=== PATIENT | male | born 1960 | race African-American/Black ===

== ENCOUNTER 2016-07-04 13:27 | Observation (INO) | payer MEDICARE, OTHER ==
[2016-07-04 14:15] LABS: HEMATOCRIT 43.6 % (37.9-51.0); HEMOGLOBIN 14.3 g/dL (13.5-17.0); HGB HCT DIFFERENCE -0.7; MEAN CORPUSCULAR HEMOGLOBIN 27.4 pg (27.0-33.4); MEAN CORPUSCULAR HGB CONC 32.7 g/dL (32.0-36.0); MEAN CORPUSCULAR VOLUME 84 fl (80-97); RED BLOOD COUNT 5.21 10^6/uL (4.35-5.55); RED CELL DISTRIBUTION WIDTH 14.1 % (11.5-14.0); WHITE BLOOD COUNT 6.4 10^3/uL (4.0-10.5)
[2016-07-04 14:38] LABS: ANION GAP 12 (5-19); BLOOD UREA NITROGEN 17 mg/dL (7-20); CALCIUM 10.5 mg/dL (8.4-10.2); CARBON DIOXIDE 26 mmol/L (22-30); CHLORIDE 107 mmol/L (98-107); CREATININE RESULT 0.83 mg/dL (0.52-1.25); GLUCOSE 85 mg/dL (75-110); POTASSIUM 4.1 mmol/L (3.6-5.0); SODIUM 144.8 mmol/L (137-145)
[2016-07-04] MEDS: HYDROMORPHONE HCL INJ/PF 2 MG/ML AMPULE IV PRN ×2 (15:28→19:38)
[2016-07-04] MEDS ORDERED: ENOXAPARIN SODIUM INJ 40 MG/0.4 ML DISP.SYRIN SUBCUT ONE (15:30)
[2016-07-04] MEDS ORDERED: CLONIDINE HCL 0.1 MG TABLET PO ONE (17:15)
[2016-07-05] MEDS ORDERED: ENOXAPARIN SODIUM INJ 30 MG/0.3 ML DISP.SYRIN SUBCUT SCH (08:00)
[2016-07-05] MEDS: ENOXAPARIN SODIUM INJ 40 MG/0.4 ML DISP.SYRIN SUBCUT SCH (08:03)
[2016-07-05] MEDS: HYDROMORPHONE HCL INJ/PF 2 MG/ML AMPULE IV PRN ×2 (08:04→13:48)
[2016-07-05] MEDS ORDERED: HYDROCHLOROTHIAZIDE 12.5 MG CAPSULE PO ONE (11:00)
[2016-07-05] MEDS ORDERED: LANSOPRAZOLE 30 MG TAB.RAP.DR PO ONE (11:00)
[2016-07-05] MEDS ORDERED: METOPROLOL TARTRATE 100 MG TABLET PO ONE (11:00)
[2016-07-05] MEDS ORDERED: ASPIRIN 81 MG TABLET, ENT COATED PO ONE (11:00)
[2016-07-05] MEDS ORDERED: LISINOPRIL 10 MG TABLET PO ONE (11:00)
[2016-07-05] MEDS: GABAPENTIN 300 MG CAPSULE PO SCH ×2 (13:45→21:10)
--- NOTE | 2016-07-05 15:34 | PDOC H&P ---
History of Present Illness Admission Date/PCP: 07/04/16 13:27 BRAEDEN HEATH MD History of Present Illness: RAJAN MYERS is a 56 year old male previous history of severe degenerative arthritis of the hip joints status post right hip replacement he came to the office because of severe pain affecting the left hip and the low back, he follows with pain management and he takes opioid, Percocet for the control of chronic pain. He denies any history of trauma or injury, he has trouble ambulating, he came to the office limping on his left hip joints. The blood pressure recorded was elevated it is hypertensive urgency. He is requesting to be admitted to the hospital to control his pain because the Percocet is not effective in the control of his pain. He is scheduled for left hip replacement therapy next month he has already had his right hip replaced. Past Medical History Cardiac Medical History: Reports: Hypertension Musculoskeltal Medical History: Reports: Arthritis Social History Smoking Status: Current Some Day Smoker Drugs: None Family History Family History: Reviewed & Not Pertinent Parental Family History Reviewed: Yes Children Family History Reviewed: Yes Sibling(s) Family History Reviewed.: Yes Medication/Allergy Home Medications: Aspirin [Aspirin EC] 81 mg PO DAILY 07/04/16 Gabapentin [Neurontin 300 mg Capsule] 300 mg PO Q8 07/04/16 Lisinopril/Hydrochlorothiazide [Zestoretic 10-12.5 mg Tablet] 1 tab PO DAILY Metoprolol Tartrate [Lopressor 100 mg Tablet] 100 mg PO Q12 07/04/16 Omeprazole 40 mg PO DAILY 07/04/16 Oxycodone HCl/Acetaminophen [Percocet 10-325 mg Tablet] 1 tab PO Q6HP PRN Oxymorphone HCl [Opana ER] 15 mg PO Q12 07/04/16 Simvastatin [Zocor 40 mg Tablet] 40 mg PO QHS 07/04/16 Zolpidem Tartrate [Ambien] 10 mg PO QHS 07/04/16 Allergies/Adverse Reactions: No Known Allergies Allergy (Verified 10/22/11 04:49) Review of Systems Constitutional: ABSENT: chills, fever(s), headache(s), weight gain, weight loss Eyes: ABSENT: visual disturbances Ears: ABSENT: hearing changes Cardiovascular: ABSENT: chest pain, dyspnea on exertion, edema, orthropnea, palpitations Respiratory: ABSENT: cough, hemoptysis Gastrointestinal: ABSENT: abdominal pain, constipation, diarrhea, hematemesis, hematochezia, nausea, vomiting Genitourinary: ABSENT: dysuria, hematuria Musculoskeletal: PRESENT: back pain, other - Severe pain affecting the joints Integumentary: ABSENT: rash, wounds Neurological: ABSENT: abnormal gait, abnormal speech, confusion, dizziness, focal weakness, syncope Psychiatric: ABSENT: anxiety, depression, homidical ideation, suicidal ideation Endocrine: ABSENT: cold intolerance, heat intolerance, menstrual abnormalities, polydipsia, polyuria Hematologic/Lymphatic: ABSENT: easy bleeding, easy bruising, lymphadenopathy Physical Exam Vital Signs: Temp Pulse Resp BP Pulse Ox 98.0 F 74 17 152/89 H 99 07/04/16 23:40 07/04/16 23:40 07/04/16 23:40 07/04/16 23:40 07/04/16 23:40 Intake & Output 07/04/16 07/05/16 07/06/16 06:59 06:59 06:59 Intake Total 1040 320 Balance 1040 320 Weight 99.2 kg General appearance: PRESENT: no acute distress, well-developed, well-nourished Head exam: PRESENT: atraumatic, normocephalic Eye exam: PRESENT: conjunctiva pink, EOMI, PERRLA Ear exam: PRESENT: normal external ear exam Mouth exam: PRESENT: moist, tongue midline Neck exam: PRESENT: full ROM Respiratory exam: PRESENT: clear to auscultation jimena Cardiovascular exam: PRESENT: RRR, +S1, +S2 Pulses: PRESENT: normal dorsalis pedis pul, +2 pedal pulses bilateral Vascular exam: PRESENT: normal capillary refill GI/Abdominal exam: PRESENT: normal bowel sounds, soft Rectal exam: PRESENT: deferred Neurological exam: PRESENT: alert, awake, oriented to person, oriented to place , oriented to time, oriented to situation, CN II-XII grossly intact Psychiatric exam: PRESENT: appropriate affect, normal mood Skin exam: PRESENT: dry, intact, warm Results Laboratory Results: 07/04/16 14:02 07/04/16 14:02 Impressions: Hip X-Ray 07/04/16 00:00 IMPRESSION: Degenerative changes in the left hip as noted above. Patient is status post right total hip replacement Lumbar Spine X-Ray 07/04/16 00:00 IMPRESSION: No significant vertebral compression or disc space reduction is seen. Minimal anterior osteophytic lipping is identified. Other findings as noted above Assessment & Plan - Diagnosis (1) Intractable pain Is this a current diagnosis for this admission?: YesPlan: Patient is admitted for observation to control the severe intractable pain that he is having (2) Osteoarthritis of left hip Qualifiers: Osteoarthritis type: primary Qualified Code(s): M16.12 - Unilateral primary osteoarthritis, left hip Is this a current diagnosis for this admission?: YesPlan: He has severe osteoarthritis of the left hip, is scheduled for hip replacement therapy
[2016-07-05] MEDS: METOPROLOL TARTRATE 100 MG TABLET PO SCH (21:10)
[2016-07-05] MEDS: ZOLPIDEM TARTRATE 5 MG TABLET PO SCH (21:10)
[2016-07-05] MEDS: SIMVASTATIN 40 MG TABLET PO SCH (21:11)
[2016-07-05] MEDS ORDERED: (PENDING PHARMACY ID) (Zolpidem Tartrate [Ambien] 10 MG) PO SCH (22:00)
[2016-07-06] MEDS: GABAPENTIN 300 MG CAPSULE PO SCH ×3 (05:20→21:55)
[2016-07-06] MEDS: HYDROMORPHONE HCL INJ/PF 2 MG/ML AMPULE IV PRN ×4 (05:20→20:34)
[2016-07-06] MEDS: ENOXAPARIN SODIUM INJ 40 MG/0.4 ML DISP.SYRIN SUBCUT SCH (08:10)
[2016-07-06] MEDS ORDERED: ASPIRIN 81 MG TABLET, ENT COATED PO SCH (10:00)
[2016-07-06] MEDS ORDERED: LISINOPRIL 10 MG TABLET PO SCH (10:00)
[2016-07-06] MEDS ORDERED: HYDROCHLOROTHIAZIDE 12.5 MG CAPSULE PO SCH (10:00)
[2016-07-06] MEDS ORDERED: (PENDING PHARMACY ID) (Lisinopril/Hydrochlorothiazide [Zestoretic 10-12.5 Mg Tablet] 1 TAB PO SCH (10:00)
[2016-07-06] MEDS ORDERED: LANSOPRAZOLE 30 MG TAB.RAP.DR PO SCH (10:00)
[2016-07-06] MEDS: METOPROLOL TARTRATE 100 MG TABLET PO SCH ×2 (10:34→21:55)
--- NOTE | 2016-07-06 17:39 | PDOC DISCHARGE SUMMARY ---
General - Admit/Disc Date/PCP Admission Date/Primary Care Provider: 07/04/16 13:27 BRAEDEN HEATH MD Discharge Date: 07/06/16 - Discharge Diagnosis (1) Intractable pain Is this a current diagnosis for this admission?: Yes (2) Osteoarthritis of left hip Is this a current diagnosis for this admission?: Yes - Additional Information Discharge Diet: As Tolerated, Regular Discharge Activity: Activity As Tolerated Home Medications: Aspirin [Aspirin EC] 81 mg PO DAILY 07/04/16 Gabapentin [Neurontin 300 mg Capsule] 300 mg PO Q8 07/04/16 Lisinopril/Hydrochlorothiazide [Zestoretic 10-12.5 mg Tablet] 1 tab PO DAILY Metoprolol Tartrate [Lopressor 100 mg Tablet] 100 mg PO Q12 07/04/16 Omeprazole 40 mg PO DAILY 07/04/16 Oxycodone HCl/Acetaminophen [Percocet 10-325 mg Tablet] 1 tab PO Q6HP PRN Oxymorphone HCl [Opana ER] 15 mg PO Q12 07/04/16 Simvastatin [Zocor 40 mg Tablet] 40 mg PO QHS 07/04/16 Zolpidem Tartrate [Ambien] 10 mg PO QHS 07/04/16 History of Present Illness History of Present Illness: RAJAN MYERS is a 56 year old male previous history of severe degenerative arthritis of the hip joints status post right hip replacement he came to the office because of severe pain affecting the left hip and the low back, he follows with pain management and he takes opioid, Percocet for the control of chronic pain. He denies any history of trauma or injury, he has trouble ambulating, he came to the office limping on his left hip joints. The blood pressure recorded was elevated it is hypertensive urgency. He is requesting to be admitted to the hospital to control his pain because the Percocet is not effective in the control of his pain. He is scheduled for left hip replacement therapy next month he has already had his right hip replaced. Hospital Course Hospital Course: Patient was admitted for observation because of intractable pain from the back on the joints he was treated with IV Dilaudid with good results, he also had hypertensive urgency due to the pain. Physical Exam Vital Signs: Temp Pulse Resp BP Pulse Ox 97.1 F 59 L 12 126/78 H 100 07/06/16 14:59 07/06/16 14:59 07/06/16 14:59 07/06/16 14:59 07/06/16 14:59 Intake & Output 07/05/16 07/06/16 07/07/16 06:59 06:59 06:59 Intake Total 1040 622 500 Balance 1040 622 500 Weight 99.2 kg General appearance: PRESENT: no acute distress, well-developed, well-nourished Head exam: PRESENT: atraumatic, normocephalic Eye exam: PRESENT: conjunctiva pink, EOMI, PERRLA. ABSENT: scleral icterus Ear exam: PRESENT: normal external ear exam Mouth exam: PRESENT: moist, tongue midline Neck exam: PRESENT: full ROM Respiratory exam: PRESENT: clear to auscultation jimena Cardiovascular exam: PRESENT: RRR, +S1, +S2 Pulses: PRESENT: normal dorsalis pedis pul, +2 pedal pulses bilateral Vascular exam: PRESENT: normal capillary refill GI/Abdominal exam: PRESENT: normal bowel sounds, soft Rectal exam: PRESENT: deferred Neurological exam: PRESENT: alert, awake, oriented to person, oriented to place , oriented to time, oriented to situation, CN II-XII grossly intact Psychiatric exam: PRESENT: appropriate affect, normal mood Skin exam: PRESENT: dry, intact, warm Results Laboratory Results: 07/04/16 14:02 07/04/16 14:02 Impressions: Hip X-Ray 07/04/16 00:00 IMPRESSION: Degenerative changes in the left hip as noted above. Patient is status post right total hip replacement Lumbar Spine X-Ray 07/04/16 00:00 IMPRESSION: No significant vertebral compression or disc space reduction is seen. Minimal anterior osteophytic lipping is identified. Other findings as noted above
[2016-07-06] MEDS: SIMVASTATIN 40 MG TABLET PO SCH (21:55)
[2016-07-06] MEDS: ZOLPIDEM TARTRATE 5 MG TABLET PO SCH (21:55)
[2016-07-07] MEDS: HYDROMORPHONE HCL INJ/PF 2 MG/ML AMPULE IV PRN (05:36)
[2016-07-07] MEDS: GABAPENTIN 300 MG CAPSULE PO SCH (05:40)
[2016-07-07] MEDS: ENOXAPARIN SODIUM INJ 40 MG/0.4 ML DISP.SYRIN SUBCUT SCH (07:39)
[2016-07-07 08:01] VITALS: BP 116/68
== END 2016-07-07 08:45 | disposition home or self-care (01) ==
LOC: 4S 13:27
PROVIDERS: ADMIT Internal Medicine; ATTEND Internal Medicine
DX: M25.552 Pain in left hip (principal); M16.12 Unilateral primary osteoarthritis, left hip; Z96.641 Presence of right artificial hip joint; I10 Essential (primary) hypertension; F17.200 Nicotine dependence, unspecified, uncomplicated
CPT/HCPCS: 36415; 85027; 80048; 73502; 72100; G0378 ×4; G0379; A9270 ×18; J1650 ×4; J1170 ×4

== ENCOUNTER 2016-07-14 22:13 | Emergency (ER) | payer MEDICARE, OTHER ==
[2016-07-14 22:54] VITALS: BP 158/83
== END 2016-07-15 05:42 | disposition left against medical advice (07) ==
LOC: ER 22:13
DX: Z53.21 Procedure and treatment not carried out due to patient leaving prior to being seen by health care provider (principal)

== ENCOUNTER 2016-07-15 15:37 | Observation (INO) | payer MEDICARE, OTHER ==
[2016-07-15] MEDS: METHYLPREDNISOLONE INJ 125 MG/2 ML SDV IV SCH (17:51)
[2016-07-15] MEDS: HYDROMORPHONE HCL INJ/PF 2 MG/ML AMPULE IV SCH (17:51)
[2016-07-15] MEDS ORDERED: (PENDING PHARMACY ID) (Oxycodone Hcl/Acetaminophen [Percocet 10-325 Mg Tablet] 1 TAB) PO PRN (20:10)
[2016-07-15] MEDS ORDERED: OXYCODONE-ACETAMINOPHEN 5-325 MG TABLET PO PRN (20:18)
[2016-07-15] MEDS ORDERED: OXYCODONE HCL IR 5 MG TABLET PO PRN (20:18)
[2016-07-15] MEDS: METOPROLOL TARTRATE 100 MG TABLET PO SCH (21:08)
[2016-07-15] MEDS: ZOLPIDEM TARTRATE 5 MG TABLET PO SCH (21:16)
[2016-07-15] MEDS: SIMVASTATIN 40 MG TABLET PO SCH (21:17)
--- NOTE | 2016-07-15 21:27 | PDOC H&P ---
History of Present Illness Admission Date/PCP: 07/15/16 15:37 History of Present Illness: RAJAN MYERS is a 56 year old male, he has history of severe degenerative arthritis of the hip joint status post right hip replacement he is scheduled for left hip replacement next week, he came to the office in tremendous pain he could not walk he also has spinal stenosis with the pain going down his legs he was recently admitted for similar presentation on July 04, 2016 for observation , he was requesting to be admitted because she could not ambulate, he came to the office in a wheelchair. He was admitted directly from the office to the hospital for observation and control his pain syndrome. Past Medical History Cardiac Medical History: Reports: Myocardial Infarction, Hypertension Musculoskeltal Medical History: Reports: Arthritis Social History Smoking Status: Current Every Day Smoker Cigarettes Packs Per Day: 1 Number of Years Smokin Last Time Smoked: 07/15/2016 Frequency of Alcohol Use: None Hx Recreational Drug Use: No Drugs: None Hx Prescription Drug Abuse: No Family History Family History: Reviewed & Not Pertinent Parental Family History Reviewed: Yes Children Family History Reviewed: Yes Sibling(s) Family History Reviewed.: Yes Medication/Allergy Home Medications: Clobetasol Propionate [Temovate 0.05% Cream 15 gm] 1 applic TOP BID 07/15/16 Lisinopril/Hydrochlorothiazide [Zestoretic 10-12.5 mg Tablet] 1 tab PO DAILY Metoprolol Tartrate [Lopressor 100 mg Tablet] 100 mg PO BID 07/15/16 Mupirocin [Bactroban 2% Ointment 22 gm] 1 applic NASL BID 07/15/16 Oxycodone HCl/Acetaminophen [Percocet 10-325 mg Tablet] 1 tab PO Q6HP PRN Oxymorphone HCl [Opana ER] 15 mg PO Q12 07/15/16 Polyethylene Glycol 3350 [Miralax] 17 gm PO DAILY 07/15/16 Simvastatin [Zocor 40 mg Tablet] 40 mg PO QHS 07/15/16 Zolpidem Tartrate [Ambien] 10 mg PO QHS 07/15/16 Allergies/Adverse Reactions: No Known Allergies Allergy (Verified 10/22/11 04:49) Review of Systems Constitutional: ABSENT: chills, fever(s), headache(s), weight gain, weight loss Eyes: ABSENT: visual disturbances Ears: ABSENT: hearing changes Cardiovascular: ABSENT: chest pain, dyspnea on exertion, edema, orthropnea, palpitations Respiratory: ABSENT: cough, hemoptysis Gastrointestinal: ABSENT: abdominal pain, constipation, diarrhea, hematemesis, hematochezia, nausea, vomiting Genitourinary: ABSENT: dysuria, hematuria Musculoskeletal: PRESENT: back pain Integumentary: ABSENT: rash, wounds Neurological: ABSENT: abnormal gait, abnormal speech, confusion, dizziness, focal weakness, syncope Psychiatric: ABSENT: anxiety, depression, homidical ideation, suicidal ideation Endocrine: ABSENT: cold intolerance, heat intolerance, menstrual abnormalities, polydipsia, polyuria Hematologic/Lymphatic: ABSENT: easy bleeding, easy bruising, lymphadenopathy Physical Exam Vital Signs: Temp Pulse Resp BP Pulse Ox 97.8 F 65 18 177/101 H 99 07/15/16 19:32 07/15/16 19:32 07/15/16 19:32 07/15/16 19:32 07/15/16 19:32 Intake & Output 07/14/16 07/15/16 07/16/16 06:59 06:59 06:59 Weight 97.522 kg General appearance: PRESENT: no acute distress, well-developed, well-nourished Head exam: PRESENT: atraumatic, normocephalic Eye exam: PRESENT: conjunctiva pink, EOMI, PERRLA Ear exam: PRESENT: normal external ear exam Mouth exam: PRESENT: moist, tongue midline Neck exam: PRESENT: full ROM, lymphadenopathy Respiratory exam: PRESENT: clear to auscultation jimena Cardiovascular exam: PRESENT: RRR, +S1, +S2 Pulses: PRESENT: normal dorsalis pedis pul, +2 pedal pulses bilateral Vascular exam: PRESENT: normal capillary refill GI/Abdominal exam: PRESENT: normal bowel sounds, soft Rectal exam: PRESENT: deferred Neurological exam: PRESENT: alert, awake, oriented to person, oriented to place , oriented to time, oriented to situation, CN II-XII grossly intact Psychiatric exam: PRESENT: appropriate affect, normal mood Skin exam: PRESENT: dry, intact, warm Assessment & Plan - Diagnosis (1) Intractable pain Is this a current diagnosis for this admission?: YesPlan: Patient is admitted for observation and management of his symptoms (2) Osteoarthritis of left hip Qualifiers: Osteoarthritis type: primary Qualified Code(s): M16.12 - Unilateral primary osteoarthritis, left hip Is this a current diagnosis for this admission?: Yes (3) Spinal stenosis, lumbar region, with neurogenic claudication Is this a current diagnosis for this admission?: Yes
[2016-07-15] MEDS ORDERED: (PENDING PHARMACY ID) (Zolpidem Tartrate [Ambien] 10 MG) PO SCH (22:00)
[2016-07-15] MEDS ORDERED: OXYMORPHONE HCL 15 MG PO SCH (22:00)
[2016-07-16] MEDS: METHYLPREDNISOLONE INJ 125 MG/2 ML SDV IV SCH ×4 (01:08→18:20)
[2016-07-16] MEDS: HYDROMORPHONE HCL INJ/PF 2 MG/ML AMPULE IV SCH ×4 (01:10→18:20)
[2016-07-16] MEDS: CLOBETASOL PROPIONATE 0.05% CREAM 15 GM TOP SCH ×2 (09:24→18:21)
[2016-07-16] MEDS: METOPROLOL TARTRATE 100 MG TABLET PO SCH ×2 (09:25→23:42)
[2016-07-16] MEDS: LISINOPRIL 10 MG TABLET PO SCH (09:26)
[2016-07-16] MEDS: HYDROCHLOROTHIAZIDE 12.5 MG CAPSULE PO SCH (09:28)
[2016-07-16] MEDS: POLYETHYLENE GLYCOL 3350 POWDER 17 GM/1 PACKET PO SCH (09:30)
[2016-07-16] MEDS: MUPIROCIN 2% OINTMENT 22 GM TOP SCH ×2 (09:30→18:21)
[2016-07-16] MEDS ORDERED: (PENDING PHARMACY ID) (Lisinopril/Hydrochlorothiazide [Zestoretic 10-12.5 Mg Tablet] 1 TAB PO SCH (10:00)
[2016-07-16] MEDS ORDERED: (PENDING PHARMACY ID) (Polyethylene Glycol 3350 [Miralax] 17 GM) PO SCH (10:00)
[2016-07-16 17:06] LABS: HEMATOCRIT 43.5 % (37.9-51.0); HEMOGLOBIN 14.5 g/dL (13.5-17.0); MEAN CORPUSCULAR HEMOGLOBIN 27.7 pg (27.0-33.4); MEAN CORPUSCULAR HGB CONC 33.4 g/dL (32.0-36.0); MEAN CORPUSCULAR VOLUME 83 fl (80-97); RED BLOOD COUNT 5.25 10^6/uL (4.35-5.55); RED CELL DISTRIBUTION WIDTH 13.7 % (11.5-14.0); WHITE BLOOD COUNT 12.2 10^3/uL (4.0-10.5)
[2016-07-16 17:30] LABS: CREATININE RESULT 0.84 mg/dL (0.52-1.25); PARTIAL THROMBOPLASTIN TIME 23.8 SEC (23.5-35.8)
[2016-07-16] MEDS ORDERED: ENOXAPARIN SODIUM INJ 40 MG/0.4 ML DISP.SYRIN SUBCUT ONE (17:30)
[2016-07-16 17:48] LABS: ALANINE AMINOTRANSFERASE 61 U/L (21-72); ALBUMIN 4.9 g/dL (3.5-5.0); ALKALINE PHOSPHATASE 73 U/L (38-126); ANION GAP 13 (5-19); ASPARTATE AMINO TRANSFERASE 48 U/L (17-59); BILIRUBIN,DIRECT 0.2 mg/dL (0.0-0.4); BILIRUBIN,TOTAL 0.6 mg/dL (0.2-1.3); BLOOD UREA NITROGEN 26 mg/dL (7-20); CALCIUM 10.4 mg/dL (8.4-10.2); CARBON DIOXIDE 28 mmol/L (22-30); CHLORIDE 101 mmol/L (98-107); CREATININE RESULT 0.91 mg/dL (0.52-1.25); GLUCOSE 163 mg/dL (75-110); POTASSIUM 4.1 mmol/L (3.6-5.0); SODIUM 142.2 mmol/L (137-145); TOTAL PROTEIN 8.1 g/dL (6.3-8.2)
[2016-07-16] MEDS: ZOLPIDEM TARTRATE 5 MG TABLET PO SCH (22:31)
[2016-07-16] MEDS: SIMVASTATIN 40 MG TABLET PO SCH (22:31)
[2016-07-17] MEDS: METHYLPREDNISOLONE INJ 125 MG/2 ML SDV IV SCH ×4 (00:31→18:08)
[2016-07-17] MEDS: HYDROMORPHONE HCL INJ/PF 2 MG/ML AMPULE IV SCH ×4 (00:32→18:08)
[2016-07-17] MEDS ORDERED: ENOXAPARIN SODIUM INJ 40 MG/0.4 ML DISP.SYRIN SUBCUT SCH (08:00)
[2016-07-17] MEDS: CLOBETASOL PROPIONATE 0.05% CREAM 15 GM TOP SCH ×2 (09:51→18:05)
[2016-07-17] MEDS: MUPIROCIN 2% OINTMENT 22 GM TOP SCH ×2 (09:51→18:05)
[2016-07-17] MEDS: METOPROLOL TARTRATE 100 MG TABLET PO SCH (10:02)
[2016-07-17] MEDS: HYDROCHLOROTHIAZIDE 12.5 MG CAPSULE PO SCH (10:02)
[2016-07-17] MEDS: LISINOPRIL 10 MG TABLET PO SCH (10:02)
[2016-07-17] MEDS: POLYETHYLENE GLYCOL 3350 POWDER 17 GM/1 PACKET PO SCH (10:03)
[2016-07-17 18:53] VITALS: BP 135/80
--- NOTE | 2016-07-17 20:06 | PDOC DISCHARGE SUMMARY ---
General - Admit/Disc Date/PCP Admission Date/Primary Care Provider: 07/15/16 15:37 Discharge Date: 07/17/16 - Discharge Diagnosis (1) Intractable pain Is this a current diagnosis for this admission?: Yes (2) Osteoarthritis of left hip Is this a current diagnosis for this admission?: Yes (3) Spinal stenosis, lumbar region, with neurogenic claudication Is this a current diagnosis for this admission?: Yes - Additional Information Discharge Activity: Activity As Tolerated, Balance Activity w/Rest Home Medications: Clobetasol Propionate [Temovate 0.05% Cream 15 gm] 1 applic TOP BID 07/15/16 Lisinopril/Hydrochlorothiazide [Zestoretic 10-12.5 mg Tablet] 1 tab PO DAILY Metoprolol Tartrate [Lopressor 100 mg Tablet] 100 mg PO BID 07/15/16 Mupirocin [Bactroban 2% Ointment 22 gm] 1 applic NASL BID 07/15/16 Oxycodone HCl/Acetaminophen [Percocet 10-325 mg Tablet] 1 tab PO Q6HP PRN Oxymorphone HCl [Opana ER] 15 mg PO Q12 07/15/16 Polyethylene Glycol 3350 [Miralax] 17 gm PO DAILY 07/15/16 Simvastatin [Zocor 40 mg Tablet] 40 mg PO QHS 07/15/16 Zolpidem Tartrate [Ambien] 10 mg PO QHS 07/15/16 History of Present Illness History of Present Illness: RAJAN MYERS is a 56 year old male, he has history of severe degenerative arthritis of the hip joint status post right hip replacement he is scheduled for left hip replacement next week, he came to the office in tremendous pain he could not walk he also has spinal stenosis with the pain going down his legs he was recently admitted for similar presentation on July 04, 2016 for observation , he was requesting to be admitted because she could not ambulate, he came to the office in a wheelchair. He was admitted directly from the office to the hospital for observation and control his pain syndrome. Hospital Course Hospital Course: Patient was admitted for the treatment of chronic pain syndrome from osteoarthritis of the lumbar spine and the joint, he was treated with IV Solu- Medrol and Dilaudid for pain control. He is scheduled for hip replacement next week Physical Exam Vital Signs: Temp Pulse Resp BP Pulse Ox 97.9 F 59 L 16 135/80 H 100 07/17/16 18:51 07/17/16 18:51 07/17/16 18:51 07/17/16 18:51 07/17/16 18:51 Intake & Output 07/16/16 07/17/16 07/18/16 06:59 06:59 06:59 Intake Total 620 1080 866 Balance 620 1080 866 Weight 97.522 kg General appearance: PRESENT: no acute distress, well-developed, well-nourished Head exam: PRESENT: atraumatic, normocephalic Eye exam: PRESENT: conjunctiva pink, EOMI, PERRLA Ear exam: PRESENT: normal external ear exam Mouth exam: PRESENT: moist, tongue midline Respiratory exam: PRESENT: clear to auscultation jimena Cardiovascular exam: PRESENT: RRR, +S1, +S2 GI/Abdominal exam: PRESENT: normal bowel sounds, soft Rectal exam: PRESENT: deferred Neurological exam: PRESENT: alert, awake, oriented to person, oriented to place , oriented to time, oriented to situation, CN II-XII grossly intact Psychiatric exam: PRESENT: appropriate affect, normal mood Skin exam: PRESENT: dry, intact, warm Results Laboratory Results: 07/16/16 16:55 07/16/16 16:55
== END 2016-07-17 20:24 | disposition home or self-care (01) ==
LOC: 4N 15:37
PROVIDERS: ADMIT Internal Medicine; ATTEND Internal Medicine
DX: G89.4 Chronic pain syndrome (principal); M16.12 Unilateral primary osteoarthritis, left hip; M48.06 Spinal stenosis, lumbar region; F17.210 Nicotine dependence, cigarettes, uncomplicated; I10 Essential (primary) hypertension; I25.2 Old myocardial infarction; Z96.641 Presence of right artificial hip joint
CPT/HCPCS: 36415; 82565; 85027; 85610; 85730; 80053; G0378 ×3; G0379; J3490 ×2; A9270 ×11; J2930 ×3; J1650 ×2; J1170 ×3

== ENCOUNTER 2016-11-09 00:41 | Emergency (ER) | payer MEDICARE, OTHER ==
[2016-11-09] MEDS ORDERED: HALOPERIDOL LACTATE INJ 5 MG/1 ML VIAL IM ONE (02:29)
[2016-11-09] MEDS ORDERED: DIPHENHYDRAMINE HCL 50 MG/ML VIAL IM ONE (02:29)
[2016-11-09] MEDS ORDERED: MIDAZOLAM 2 MG/2 ML INJ IM ONE (02:29)
--- NOTE | 2016-11-09 03:25 | ER Document Report ---
ED General - General Stated Complaint: IVC Time Seen by Provider: 11/09/16 02:29 Notes: Patient is a 56-year-old male who presents in the custody of [facility] or involuntary commitment after he apparently made suicidal threats while talking to a veterans crisis line. History is extremely limited as patient is somewhat hostile and aggressive during initial attempts at obtaining a history. He denies that he stated that he wanted to harm himself by shooting himself to the veterans mental health social worker stating that this is just a misunderstanding. Does admit to both alcohol and Percocet use tonight. He denies any active suicidal homicidal ideation. He denies any acute medical complaints. TRAVEL OUTSIDE OF THE [place] IN LAST 30 DAYS: No - Related Data Allergies/Adverse Reactions: No Known Allergies Allergy (Verified 10/22/11 04:49) Past Medical History - General Information source: Patient, Emergency Med Personnel - Social History Smoking Status: Current Every Day Smoker Frequency of alcohol use: Occasional Drug Abuse: None Lives with: Alone Family History: Reviewed & Not Pertinent - Past Medical History Cardiac Medical History: Reports: Hx Heart Attack, Hx Hypertension Denies: Hx Coronary Artery Disease Pulmonary Medical History: Denies: Hx Asthma, Hx Bronchitis, Hx COPD, Hx Pneumonia Neurological Medical History: Denies: Hx Cerebrovascular Accident, Hx Seizures Renal/ Medical History: Denies: Hx Peritoneal Dialysis Musculoskeltal Medical History: Reports Hx Arthritis Psychiatric Medical History: Denies: Hx Depression - Immunizations Hx Diphtheria, Pertussis, Tetanus Vaccination: Yes Hx Pneumococcal Vaccination: 02/19/16 Review of Systems - Review of Systems Notes: Constitutional: Negative for fever. HENT: Negative for sore throat. Eyes: Negative for visual changes. Cardiovascular: Negative for chest pain. Respiratory: Negative for shortness of breath. Gastrointestinal: Negative for abdominal pain, vomiting or diarrhea. Genitourinary: Negative for dysuria. Musculoskeletal: Negative for back pain. Skin: Negative for rash. Neurological: Negative for headaches, weakness or numbness. 10 point ROS negative except as marked above and in HPI. Physical Exam - Vital signs Vitals: Pulse Resp BP Pulse Ox 101 H 18 149/81 H 99 11/09/16 03:39 11/09/16 03:39 11/09/16 03:39 11/09/16 03:39 Notes: PHYSICAL EXAMINATION: GENERAL: Intoxicated, agitated HEAD: Atraumatic, normocephalic. EYES: Pupils equal round and reactive to light, extraocular movements intact, sclera anicteric, conjunctiva are normal. ENT: nares patent, oropharynx clear without exudates. Moist mucous membranes. NECK: Normal range of motion, supple without lymphadenopathy LUNGS: Breath sounds clear to auscultation bilaterally and equal. No wheezes rales or rhonchi. HEART: Regular rate and rhythm without murmurs ABDOMEN: Soft, nontender, normoactive bowel sounds. No guarding, no rebound. No masses appreciated. EXTREMITIES: Normal range of motion, no pitting or edema. No cyanosis. NEUROLOGICAL: No focal neurological deficits. Moves all extremities spontaneously and on command. PSYCH: Intoxicated, tangential thought process, labile mood SKIN: Warm, Dry, normal turgor, no rashes or lesions noted. Course - Re-evaluation Re-evalutation: 11/09/16 0155 Patient presents acutely agitated, apparently threatened to kill himself on a crisis line, arrives in police custody. Initially patient was willing to have a calm conversation with me but he was noted to be intoxicated and apparently had influence of opiates. Patient did deny any acute suicidal or homicidal ideation but again presented is a highly labile, unreliable historian. He was brought in on IVC paperwork by NAK[facility]. I did encourage the patient to please call me remain in his bed, offered him comfort measures including food and access to a television. Shortly after leaving the room the patient did become quite agitated requiring security to be called. 0230-patient has now become increasingly agitated at the point where he will require sedation for his safety as well as safety of staff. Haldol, Versed, and Benadryl will be administered. Security will four-point patient to the bed until he can be calm and cooperative. 0330-on repeat assessment, patient is now lying in bed, awake but much more calm , no longer aggressive and hostile toward staff. Pending laboratory assessment for medical clearance 11/09/16 04:32 Laboratories are unremarkable. Patient remained calm and cooperative. He is medically cleared for evaluation by psychiatry in the morning. - Vital Signs Vital signs: Temp Pulse Resp BP Pulse Ox 101 H 18 149/81 H 99 11/09/16 03:39 11/09/16 03:39 11/09/16 03:39 11/09/16 03:39 - Laboratory Result Diagrams: 11/09/16 03:15 11/09/16 03:15 Laboratory results interpreted by me: 11/09/16 11/09/16 03:15 03:15 RDW 14.5 H Plt Count 146 L Sodium 146.7 H Chloride 109 H Carbon Dioxide 20 L ALT 104 H Salicylates < 1.0 L Acetaminophen < 10 L - EKG Interpretation by Me Additional EKG results interpreted by me: 11/09/16 03:24 Sinus rhythm. Rate 81. No ST elevations or depressions. QTC is 465. Critical Care Note - Critical Care Note Total time excluding time spent on procedures (mins): 36 Comments: Critical care time spent obtaining history from patient or surrogate, discussions with consultants, development of treatment plan with patient or surrogate, evaluation of patient's response to treatment, examination of patient , ordering and performing treatments and interventions, ordering and review of laboratory studies, re-evaluation of patient's condition, ordering and review of radiographic studies and review of old charts Discharge - Discharge Clinical Impression: Suicidal ideation, Agitation, Aggressive behavior Alcoholic intoxication Qualifiers: Complication of substance-induced condition: uncomplicated Qualified Code(s): F10.920 - Alcohol use, unspecified with intoxication, uncomplicated Condition: Stable Disposition: PSYCH HOSP/UNIT
[2016-11-09 03:27] LABS: ABSOLUTE BASOPHILS # (AUTO) 0.1 10^3/uL (0.0-0.2); ABSOLUTE EOSINOPHILS # (AUTO) 0.1 10^3/uL (0.0-0.6); ABSOLUTE LYMPHOCYTES (AUTO) 2.2 10^3/uL (0.5-4.7); ABSOLUTE MONOCYTES (AUTO) 0.5 10^3/uL (0.1-1.4); ABSOLUTE NEUT (AUTO) 3.9 10^3/uL (1.7-8.2); BASOPHILS % (AUTO) 0.8 % (0-2); EOSINOPHILS % (AUTO) 1.2 % (0-6); HEMATOCRIT 43.8 % (37.9-51.0); HEMOGLOBIN 14.4 g/dL (13.5-17.0); HGB HCT DIFFERENCE -0.6; LYMPHOCYTES % (AUTO) 32.5 % (13-45); MEAN CORPUSCULAR HEMOGLOBIN 27.7 pg (27.0-33.4); MEAN CORPUSCULAR HGB CONC 32.9 g/dL (32.0-36.0); MEAN CORPUSCULAR VOLUME 84 fl (80-97); MONOCYTES % (AUTO) 7.2 % (3-13); RED CELL DISTRIBUTION WIDTH 14.5 % (11.5-14.0); SEGMENTED NEUTROPHILS % (AUTO) 58.3 % (42-78); WHITE BLOOD COUNT 6.6 10^3/uL (4.0-10.5)
[2016-11-09 03:42] LABS: ALANINE AMINOTRANSFERASE 104 U/L (21-72); ALBUMIN 4.7 g/dL (3.5-5.0); ALCOHOL 227 mg/dL (NONE DETECTED); ALKALINE PHOSPHATASE 85 U/L (38-126); ANION GAP 18 (5-19); ASPARTATE AMINO TRANSFERASE 49 U/L (17-59); BILIRUBIN,DIRECT 0.3 mg/dL (0.0-0.4); BILIRUBIN,TOTAL 0.4 mg/dL (0.2-1.3); BLOOD UREA NITROGEN 17 mg/dL (7-20); CALCIUM 9.2 mg/dL (8.4-10.2); CARBON DIOXIDE 20 mmol/L (22-30); CHLORIDE 109 mmol/L (98-107); CREATININE RESULT 0.79 mg/dL (0.52-1.25); GLUCOSE 98 mg/dL (75-110); POTASSIUM 3.6 mmol/L (3.6-5.0); SODIUM 146.7 mmol/L (137-145); TOTAL PROTEIN 7.6 g/dL (6.3-8.2)
[2016-11-09 07:00] VITALS: BP 155/90
--- NOTE | 2016-11-09 09:32 | ER Document Report ---
Doctor's Note Notes: 11/09/16 09:31 This is a 56-year-old man brought to the emergency room by ISAÍAS for suicidal ideation patient was noted to be somewhat hostile and aggressive on initial presentation. He did require sedation and physical restraints in the emergency room. His presenting alcohol level was 227. His vital signs show mild to moderate hypertension, but are otherwise stable. His labs are otherwise unremarkable. Currently, the patient is alert and oriented 3. Patient states he feels much better and wants to go home. He denies any suicidal or homicidal ideations. His mentation appears quite clear at this time and he appears competent. He was to be evaluated by psychiatry and will most likely go home today. 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 I have discussed with him about his alcohol level and the mood change with alcohol use. I have encouraged him to stop using alcohol and encouraged him to seek outpatient resources.
--- NOTE | 2016-11-09 10:59 | ER Document Report ---
ED Psych Disorder / Suicide - General Chief Complaint: Psych Problem Stated Complaint: IVC Time Seen by Provider: 11/09/16 02:29 Information source: Patient, Relative TRAVEL OUTSIDE OF THE [place] IN LAST 30 DAYS: No - HPI Patient complains to provider of: Aggression, Suicidal ideation, Suicidal plan, Other - ETOH Onset: Just prior to arrival Suicide Risk Factors: Frightened friends/family, Lethal weapons in home, Male, Substance abuse, Other mental health dx. Similar symptoms previously: Yes Recently seen / treated by doctor: Yes Notes: Patient is a 56 year old male who presented overnight in custody of [facility] acutely intoxicated (226) after he called the [place] Crisis line reporting SI with means and intent (gun). Patient states while he is not able to state what he reported verbatim to the crisis line, but states it was blown out of proportion and taken out of context. Patient states he is not suicidal, nor does he have access to weapons. Patient states he was upset and needed to talk with someone. Patient states he has numerous stressors to include his marriage and recent hip surgery which "isnt taking well." Patient denies SI.HI. Patient endorses frequent ETOH, but declines to endorse frequency and intensity. Patient denies detox resources and or SA resources. Patinet denies any prior suicide attempts and or inpatient hospitalizations. Patient's , Rebecca Worthy states: they recently and he is just a little upset, and "aint nothing wrong with him." states the police department came and picked him up. She states they were together yesterday and he had a couple of drinks. She states they were for 9 years and wrote a statement to [facility] stating that the patient does not have a gun , and hers are at her son's house and he does not have access. She states his drinking is a concern, and that it is one of the reasons they . She states he has never attempted suicide in the past, "just said dumb things." Patient is A&O. Mood is anxious with normal affect. Patient denies SI/HI. Patient denies A/V H; delusions not noted. Thought processes were guarded, but organized. Conversational speech was WNL. Intellectual abilities were estimated within average range. Attention and focus were fair. Insight, judgment , and impulse control were poor. Unspecified Depressive Disorder Unspecified Alcohol Use Disorder Patient is psychiatrically cleared for discharge. Patient is recommended for rescind IVC and discharge to his . Patient and adamant that patient is not suicidal nor does he have access to weapons. [facility] and [facility]. I consulted with Dr. Ta in regards to the care and management of this patient. ED MD is in agreement with disposition and recommendations. - Related Data Allergies/Adverse Reactions: No Known Allergies Allergy (Verified 10/22/11 04:49) Past Medical History - General Information source: Patient, Emergency Med Personnel - Social History Smoking Status: Current Every Day Smoker Cigarette use (# per day): Yes Smoking Education Provided: Yes Frequency of alcohol use: Heavy Drug Abuse: None Lives with: Alone Family History: Reviewed & Not Pertinent Patient has suicidal ideation: No Patient has homicidal ideation: No - Past Medical History Cardiac Medical History: Reports: Hx Heart Attack, Hx Hypertension Denies: Hx Coronary Artery Disease Pulmonary Medical History: Denies: Hx Asthma, Hx Bronchitis, Hx COPD, Hx Pneumonia Neurological Medical History: Denies: Hx Cerebrovascular Accident, Hx Seizures Renal/ Medical History: Denies: Hx Peritoneal Dialysis Musculoskeltal Medical History: Reports Hx Arthritis Psychiatric Medical History: Denies: Hx Depression - Immunizations Hx Diphtheria, Pertussis, Tetanus Vaccination: Yes Hx Pneumococcal Vaccination: 02/19/16 Physical Exam - Vital signs Vitals: Pulse Resp BP Pulse Ox 101 H 18 149/81 H 99 11/09/16 03:39 11/09/16 03:39 11/09/16 03:39 11/09/16 03:39 Course - Vital Signs Vital signs: Temp Pulse Resp BP Pulse Ox 97.4 F 77 20 155/90 H 95 11/09/16 06:52 11/09/16 06:52 11/09/16 06:52 11/09/16 06:52 11/09/16 06:52 - Laboratory Result Diagrams: 11/09/16 03:15 11/09/16 03:15 Laboratory results interpreted by me: 11/09/16 11/09/16 03:15 03:15 RDW 14.5 H Plt Count 146 L Sodium 146.7 H Chloride 109 H Carbon Dioxide 20 L ALT 104 H Salicylates < 1.0 L Acetaminophen < 10 L Discharge - Discharge Clinical Impression: Suicidal ideation, Agitation, Aggressive behavior Alcohol intoxication Qualifiers: Complication of substance-induced condition: uncomplicated Qualified Code(s): F10.920 - Alcohol use, unspecified with intoxication, uncomplicated Condition: Stable Disposition: HOME, SELF-CARE Additional Instructions: Acute Alcohol Intoxication Your evaluation revealed very high levels of alcohol. You can from drinking a large amount of alcohol rapidly! Further, there's the risk of falls , traffic accidents, and fights. A high portion (about 50 percent) of the serious injuries seen in hospital emergency rooms are caused by alcohol. Alcohol overdosage is usually due to an underlying emotional or psychiatric problem. You may benefit from counselling. If "binge" drinking is an ongoing problem for you, or if you drink ANY AMOUNT of alcohol EVERY day, you most likely have a tendency to alcoholism. You should avoid alcohol totally. We can refer you for treatment. Persons with alcohol problems are often also prone to other addictions -- you should discuss any use of medications or drugs with the doctor. You should be watched at home for the next several hours by someone who has not been drinking. Get extra fluids for the next 24 hours. Call the doctor if there is repeated vomiting, increasing headache, decreasing level of alertness, or any other worsening. Suicidal Ideation Suicidal ideation is a common medical term for thoughts about suicide, which may be as detailed as a formulated plan, without the suicidal act itself. Although most people who undergo suicidal ideation do not commit suicide, some go on to make suicide attempts. The range of suicidal ideation varies greatly from fleeting to detailed planning, role playing, and unsuccessful attempts. While thoughts about suicide are common, most people do not carry out serious actions to commit suicide. However, based upon your evaluation and discussion with you, we believe you are currently at risk to act upon your thoughts of suicide. Therefore, you will be admitted to a facility for inpatient care. Please follow up with the [facility] for a substance abuse assessment as well as to engage in counseling to assist you with coping skills, etc. Forms: Smoking Cessation Education Referrals: [facility] [Provider Group] - 11/10/16 (Please call to schedule an assessment.)
--- NOTE | 2016-11-09 13:47 | EKG REPORT ---
SEVERITY:- ABNORMAL ECG - SINUS RHYTHM CONSIDER ANTEROSEPTAL INFARCT : Confirmed by: Betty Delvalle MD 09-Nov-2016 13:46:31
== END 2016-11-09 11:10 | disposition home or self-care (01) ==
LOC: ER 00:41
DX: R45.851 Suicidal ideations (principal); R45.1 Restlessness and agitation; F10.920 Alcohol use, unspecified with intoxication, uncomplicated; F91.1 Conduct disorder, childhood-onset type; F32.9 Major depressive disorder, single episode, unspecified; Z78.1 Physical restraint status; I10 Essential (primary) hypertension; F17.210 Nicotine dependence, cigarettes, uncomplicated; I25.2 Old myocardial infarction
CPT/HCPCS: 93005; 99284; 96372; 36415; 80307 ×3; 85025; 80053; 93010; J2250; J1200; J1630

== ENCOUNTER 2017-09-01 21:05 | Observation (INO) | payer MEDICARE, OTHER ==
--- NOTE | 2017-09-01 21:11 | ER Document Report ---
ED Head/Face/Scalp Injury - General Chief Complaint: Facial Injury Stated Complaint: ETOH ABUSE Time Seen by Provider: 09/01/17 21:06 Notes: The patient is a 57-year-old male who presents by EMS after he had a fall 2 days ago. He was found by bystanders stumbling and incoherent. He admits to drinking alcohol. There are abrasions over his face. Patient was uncooperative when EMS arrived, but unable to provide his name. EMS provided him with 5 mg IM Haldol and 25 mg IM Benadryl for his protection and to transport him for further evaluation. Patient unable to provide any additional history. TRAVEL OUTSIDE OF THE [place] IN LAST 30 DAYS: No - Related Data Allergies/Adverse Reactions: No Known Allergies Allergy (Verified 10/22/11 04:49) Past Medical History - General Information source: Emergency Med Personnel - Social History Smoking Status: Unknown if Ever Smoked Frequency of alcohol use: Heavy Family History: Reviewed & Not Pertinent - Past Medical History Cardiac Medical History: Reports: Hx Heart Attack, Hx Hypertension Denies: Hx Coronary Artery Disease Pulmonary Medical History: Denies: Hx Asthma, Hx Bronchitis, Hx COPD, Hx Pneumonia Neurological Medical History: Denies: Hx Cerebrovascular Accident, Hx Seizures Renal/ Medical History: Denies: Hx Peritoneal Dialysis Musculoskeltal Medical History: Reports Hx Arthritis Psychiatric Medical History: Denies: Hx Depression - Immunizations Hx Diphtheria, Pertussis, Tetanus Vaccination: Yes Hx Pneumococcal Vaccination: 02/19/16 Review of Systems - Review of Systems -: Yes ROS unobtainable due to patient's medical condition Physical Exam - Vital signs Vitals: Temp Pulse Resp BP Pulse Ox 97.9 F 89 19 128/82 H 91 L 09/01/17 21:41 09/01/17 21:41 09/01/17 21:41 09/01/17 21:41 09/01/17 21:41 - Notes Notes: PHYSICAL EXAMINATION: GENERAL: In no acute distress, appears clinically intoxicated, smells of ETOH. HEAD: Atraumatic EYES: Pupils equal round and reactive to light, extraocular movements intact, sclera anicteric, conjunctiva are normal. ENT: nares patent with dried blood, oropharynx clear without exudates. Moist mucous membranes. NECK: Normal range of motion, supple without lymphadenopathy LUNGS: Breath sounds clear to auscultation bilaterally and equal. No wheezes rales or rhonchi. HEART: Regular rate and rhythm without murmurs ABDOMEN: Soft, nontender, normoactive bowel sounds. No guarding, no rebound. No masses appreciated. EXTREMITIES: Normal range of motion, no pitting or edema. No cyanosis. NEUROLOGICAL: Moving all 4 extremities. Uncooperative. SKIN: Abrasions over nose and philtrum. Course - Re-evaluation Re-evalutation: 57-year-old with fall 2 days ago and stumbling outside. CT head, face and C- spine ordered to assess for injury. 09/01/17 22:09 Call from Radiologist. Right-sided brain tumor with 7 mm shift. No active bleeds or fractures. Spoke to patient about this diagnosis and he is able to repeat back the diagnosis. He mentions that he has had increased headaches. Patient is a very poor candidate for outpatient follow-up due to his heavy alcohol use. Spoke to [facility] center and awaiting callback for accepting physician. 09/01/17 22:[address] Goldman ([facility]) and he has accepted patient. Awaiting for patient to sober up. He is much more cooperative after his IM Haldol and Benadryl. - Vital Signs Vital signs: Temp Pulse Resp BP Pulse Ox 97.9 F 89 19 128/82 H 91 L 09/01/17 21:41 09/01/17 21:41 09/01/17 21:41 09/01/17 21:41 09/01/17 21:41 - Laboratory Laboratory results interpreted by me: 09/01/17 21:56 POC Glucose 111 H - Diagnostic Test Radiology reviewed: Image reviewed, Reports reviewed Radiology results interpreted by me: CT Head: 5 cm area of irregular hypodensity in the right temporal lobe consistent with vasogenic edema resulting in 7 mm of subfalcine midline shift to the patient's left side, chronic appearing. Overall this appearance is concerning for neoplastic process. No hemorrhage. EVIDENCE OF ACUTE STROKE: NO. CT Face: No fractures. CT C-spine: NAD Discharge - Discharge Clinical Impression: Brain tumor Facial abrasion Qualifiers: Encounter type: initial encounter Qualified Code(s): S00.81XA - Abrasion of other part of head, initial encounter Condition: Stable Disposition: [facility]
--- NOTE | 2017-09-01 22:12 | RADIOLOGY REPORT (SQ) ---
EXAM DESCRIPTION: CT HEAD WITHOUT COMPLETED DATE/TIME: 09/01/2017 9:34 pm REASON FOR STUDY: head injury, +ETOH COMPARISON: None. TECHNIQUE: Axial images acquired through the brain without intravenous contrast. Images reviewed wi th bone, brain and subdural windows. Images stored on PACS. All CT scanners at this facility use dose modulation, iterative reconstruction, and/or weight based d osing when appropriate to reduce radiation dose to as low as reasonably achievable (ALARA). [facility]: Dose Right [facility]: CareDose [facility]: Dose Right [facility]: Teradose 4D [facility]: [employer] RADIATION DOSE: mGy. LIMITATIONS: None. FINDINGS: VENTRICLES: Normal size and contour. CEREBRUM: 5 cm area of irregular hypodensity in the right temporal lobe consistent with vasogenic adrian ma resulting in 7 mm of subfalcine midline shift to the patient's left side, chronic appearing. No h emorrhage. CEREBELLUM: No masses. No hemorrhage. No alteration of density. No evidence for acute infarction. EXTRAAXIAL SPACES: No fluid collections. No masses. ORBITS AND GLOBE: No intra- or extraconal masses. Normal contour of globe without masses. CALVARIUM: No fracture. PARANASAL SINUSES: No fluid or mucosal thickening. SOFT TISSUES: No mass or hematoma. OTHER: No other significant finding. IMPRESSION: 5 cm area of irregular hypodensity in the right temporal lobe consistent with vasogenic edema resulting in 7 mm of subfalcine midline shift to the patient's left side, chronic appearing. O verall this appearance is concerning for neoplastic process. No hemorrhage. EVIDENCE OF ACUTE STROKE: NO. COMMENT: Results were called to the emergency room physician Dr. Jean at 2200 hours, results were co nfirmed and read back. Quality ID # [id number]: Final reports with documentation of one or more dose reduction techniques (e.g., Au tomated exposure control, adjustment of the mA and/or kV according to patient size, use of iterative reconstruction technique) TECHNICAL DOCUMENTATION: JOB ID: [id number] [place]-72 2010 [employer]- All Rights Reserved Reading location - IP/workstation name: [email or web address]
--- NOTE | 2017-09-01 22:13 | RADIOLOGY REPORT (SQ) ---
EXAM DESCRIPTION: CT FACIAL AREA WITHOUT COMPLETED DATE/TIME: 09/01/2017 9:34 pm REASON FOR STUDY: +facial injury COMPARISON: None. TECHNIQUE: Noncontrasted images through the facial bones and orbits windowed for bone and soft tissu e. Additional coronal and sagittal reconstructed images reviewed. All images stored on PACS. All CT scanners at this facility use dose modulation, iterative reconstruction, and/or weight based d osing when appropriate to reduce radiation dose to as low as reasonably achievable (ALARA). [facility]: Dose Right [facility]: CareDose [facility]: Dose Right [facility]: Teradose 4D [facility]: [employer] RADIATION DOSE: mGy. LIMITATIONS: None. FINDINGS: FACIAL BONES: No fracture or bone lesion. ORBITS: Intact. No fracture. Symmetric intact globes and retroorbital soft tissues. PARANASAL SINUSES: Clear. No significant mucosal thickening, mass or fluid. No nasal polyps. Maxill reinaldo sinus outlets are patent. SOFT TISSUES: No mass or edema. INFERIOR BRAIN: Limited view. No acute findings. OTHER: No other significant finding. IMPRESSION: No fracture. TECHNICAL DOCUMENTATION: JOB ID: [id number] [place]-72 Quality ID # [id number]: Final reports with documentation of one or more dose reduction techniques (e.g., Au tomated exposure control, adjustment of the mA and/or kV according to patient size, use of iterative reconstruction technique) 2010 [employer]- All Rights Reserved Reading location - IP/workstation name: [email or web address]
--- NOTE | 2017-09-01 22:15 | RADIOLOGY REPORT (SQ) ---
EXAM DESCRIPTION: CT CERVICAL SPINE WITHOUT COMPLETED DATE/TIME: 09/01/2017 9:34 pm REASON FOR STUDY: head njury, +ETOH COMPARISON: None. TECHNIQUE: Axial images acquired through the cervical spine without intravenous contrast. Images re viewed with lung, soft tissue and bone windows. Reconstructed coronal and sagittal MPR images review ed. Images stored on PACS. All CT scanners at this facility use dose modulation, iterative reconstruction, and/or weight based d osing when appropriate to reduce radiation dose to as low as reasonably achievable (ALARA). [facility]: Dose Right [facility]: CareDose [facility]: Dose Right [facility]: Teradose 4D [facility]: [employer] RADIATION DOSE: mGy. LIMITATIONS: None. FINDINGS: ALIGNMENT: Anatomic. MINERALIZATION: Normal. VERTEBRAL BODIES: No fractures or dislocation. DISCS: Multilevel disc space narrowing with osteophytes. FACETS, LATERAL MASSES, POSTERIOR ELEMENTS: Facet arthropathy. No fractures. No dislocation. No ac farrah findings. HARDWARE: None in the spine. VISUALIZED RIBS: No fractures. LUNG APICES AND SOFT TISSUES: No significant or acute findings. OTHER: No other significant finding. IMPRESSION: CHRONIC DEGENERATIVE CHANGES. NO ACUTE FINDINGS. TECHNICAL DOCUMENTATION: JOB ID: [id number] [place]-72 Quality ID # [id number]: Final reports with documentation of one or more dose reduction techniques (e.g., Au tomated exposure control, adjustment of the mA and/or kV according to patient size, use of iterative reconstruction technique) 2010 [employer]- All Rights Reserved Reading location - IP/workstation name: [email or web address]
[2017-09-01 23:10] LABS: ABSOLUTE BASOPHILS # (AUTO) 0.1 10^3/uL (0.0-0.2); ABSOLUTE EOSINOPHILS # (AUTO) 0.2 10^3/uL (0.0-0.6); ABSOLUTE LYMPHOCYTES (AUTO) 3.7 10^3/uL (0.5-4.7); ABSOLUTE MONOCYTES (AUTO) 0.4 10^3/uL (0.1-1.4); ABSOLUTE NEUT (AUTO) 2.9 10^3/uL (1.7-8.2); BASOPHILS % (AUTO) 1.5 % (0-2); EOSINOPHILS % (AUTO) 2.9 % (0-6); HEMOGLOBIN 14.9 g/dL (13.5-17.0); MEAN CORPUSCULAR HEMOGLOBIN 27.9 pg (27.0-33.4); MEAN CORPUSCULAR HGB CONC 33.1 g/dL (32.0-36.0); MEAN CORPUSCULAR VOLUME 84 fl (80-97); MONOCYTES % (AUTO) 5.2 % (3-13); PLATELET COUNT 167 10^3/uL (150-450); RED BLOOD COUNT 5.35 10^6/uL (4.35-5.55); RED CELL DISTRIBUTION WIDTH 14.4 % (11.5-14.0); SEGMENTED NEUTROPHILS % (AUTO) 39.4 % (42-78); TOTAL CELLS COUNTED % (AUTO) 100 %; WHITE BLOOD COUNT 7.3 10^3/uL (4.0-10.5)
[2017-09-01 23:53] LABS: ALANINE AMINOTRANSFERASE 35 U/L (21-72); ALBUMIN 4.6 g/dL (3.5-5.0); ALCOHOL 289 mg/dL (NONE DETECTED); ALKALINE PHOSPHATASE 84 U/L (38-126); ANION GAP 17 (5-19); ASPARTATE AMINO TRANSFERASE 44 U/L (17-59); BILIRUBIN,DIRECT 0.2 mg/dL (0.0-0.4); BILIRUBIN,TOTAL 0.2 mg/dL (0.2-1.3); BLOOD UREA NITROGEN 16 mg/dL (7-20); CALCIUM 9.4 mg/dL (8.4-10.2); CARBON DIOXIDE 24 mmol/L (22-30); CHLORIDE 107 mmol/L (98-107); GLUCOSE 96 mg/dL (75-110); POTASSIUM 4.4 mmol/L (3.6-5.0); SODIUM 147.5 mmol/L (137-145); TOTAL PROTEIN 7.3 g/dL (6.3-8.2)
[2017-09-02] MEDS ORDERED: DEXAMETHASONE SOD PHOS INJ 10 MG/1 ML VIAL IV ONE (08:41)
--- NOTE | 2017-09-02 08:48 | ER Document Report ---
Doctor's Note Notes: 09/02/17 08:45 PT evaluation was performed. Patient is alert. States that he does have some blurred vision and has a headache. Patient has evidence of a brain tumor. Will order MRI. I have consulted with his primary care doctor, Dr. Soto. Will place in observation status until bed is available. Anticipate long wait in the emergency department which would not be beneficial for the patient. Dr. Soto agrees. Dr. Goldman with neurosurgery has accepted the patient. At this time will proceed with an observation status for an inpatient bed. I have ordered Decadron to help with the swelling.. Patient now agrees to stay. Initially patient was refusing to be transferred but now patient agrees to stay. Discharge - Discharge Clinical Impression: Brain tumor Facial abrasion Qualifiers: Encounter type: initial encounter Qualified Code(s): S00.81XA - Abrasion of other part of head, initial encounter Condition: Stable Disposition: ADMITTED OBSERVATION Admitting Provider: Brittany Unit Admitted: Medical Floor - This discharge
--- NOTE | 2017-09-02 12:18 | RADIOLOGY REPORT (SQ) ---
EXAM DESCRIPTION: MRI HEAD COMBO COMPLETED DATE/TIME: 09/02/2017 11:37 am REASON FOR STUDY: brain tumor COMPARISON: CT brain from yesterday. TECHNIQUE: Multiplanar imaging includes noncontrasted T1, T2, FLAIR, diffusion with ADC map and post gadolinium contrast T1 sequences. Images stored on PACS. CONTRAST TYPE AND DOSE: 20 mL MultiHance RENAL FUNCTION: GFR > 60. LIMITATIONS: None. FINDINGS: ANATOMY: No anomalies. Normal vascular flow voids. Pituitary fossa normal. CSF SPACES: Effacement right lateral ventricle with right to left shift, subfalcine herniation of jus t over 9 mm. No extra-axial hemorrhage. CEREBRUM: Large heterogeneously enhancing mass in the right frontal and temporal lobes. This extends to the inferior aspect of the right middle cranial fossa. The mass measures at least 4 x 6 cm AP by transverse. At least 5 cm craniocaudal. There is associated vasogenic edema regionally. This look s like a solitary lesion, no other enhancing lesions appreciated. POSTERIOR FOSSA: No signal alteration. No hemorrhage. No edema, masses, or mass effect. Internal yelena tory canals, cerebellopontine angles, mastoids normal. No enhancing lesions. No abnormal enhancement post contrast. DIFFUSION IMAGING: Heterogeneous in the region of the above-noted mass. No acute infarct suggested. ORBITS: No masses. Globes normal. PARANASAL SINUSES: No fluid levels. Mucosa normal. OTHER: No other significant finding. IMPRESSION: 1. Large right cerebral mass involving the frontal and temporal lobes is confirmed. Co nsistent with a primary brain lesion. As seen on CT, there is extensive regional edema and right to left shift with mass effect on the right lateral ventricle. EVIDENCE OF ACUTE STROKE: NO. TECHNICAL DOCUMENTATION: JOB ID: [id number] [employer]- All Rights Reserved Reading location - IP/workstation name: [email or web address]
[2017-09-02] MEDS ORDERED: DEXAMETHASONE SOD PHOSPHATE INJ 4 MG/1 ML VIAL IV SCH ×2 (14:00→18:00)
--- NOTE | 2017-09-02 16:31 | PDOC H&P ---
History of Present Illness Admission Date/PCP: 09/02/17 09:00 History of Present Illness: RAJAN MYERS is a 57 year old male, he fell 2 days ago, was found by bystanders stumbling and incoherent was transported to the emergency room, in the emergency room CT head was done, showed, 5 cm area of irregular hypodensity in the right temporal lobe consistent with vasogenic edema resulting in 7 mm subfalcine midline shift to the patient's left side subsequent MRI showed large right cerebral mass involving the frontal and temporal lobes consistent with primary brain lesion Past Medical History Cardiac Medical History: Reports: Hypertension Musculoskeltal Medical History: Reports: Arthritis Social History Smoking Status: Current Every Day Smoker Cigarettes Packs Per Day: 1.5 Cigars Per Day: 0 Pipes Per Day: 0 Number of Years Smokin Last Time Smoked: 09/01/2017 Frequency of Alcohol Use: Heavy Hx Recreational Drug Use: No Drugs: None Hx Prescription Drug Abuse: No - Advance Directive Resuscitation Status: Full Code Family History Family History: Reviewed & Not Pertinent Parental Family History Reviewed: Yes Children Family History Reviewed: Yes Sibling(s) Family History Reviewed.: Yes Medication/Allergy Home Medications: RX: Lisinopril/Hydrochlorothiazide [Zestoretic 10-12.5 mg Tablet] 1 tab PO DAILY 07/15/16 RX: Metoprolol Tartrate [Lopressor 100 mg Tablet] 100 mg PO BID 07/15/16 RX: Oxycodone HCl/Acetaminophen [Percocet 10-325 mg Tablet] 1 tab PO Q6HP PRN RX: Simvastatin [Zocor 40 mg Tablet] 40 mg PO QHS 07/15/16 RX: Zolpidem Tartrate [Ambien] 10 mg PO QHS 07/15/16 Ascorbic Acid [Vitamin C 500 mg Tablet] 1,000 mg PO DAILY 09/02/17 Aspirin [Aspirin EC] 81 mg PO DAILY 09/02/17 Cholecalciferol (Vitamin D3) [Vitamin D3 1000 Unit Tablet] 1,000 unit PO DAILY 09/02/17 Allergies/Adverse Reactions: No Known Allergies Allergy (Verified 10/22/11 04:49) Review of Systems Constitutional: PRESENT: headache(s). ABSENT: chills, fever(s), weight gain, weight loss Eyes: ABSENT: visual disturbances Ears: ABSENT: hearing changes Cardiovascular: ABSENT: chest pain, dyspnea on exertion, edema, orthropnea, palpitations Respiratory: ABSENT: cough, hemoptysis Gastrointestinal: ABSENT: abdominal pain, constipation, diarrhea, hematemesis, hematochezia, nausea, vomiting Genitourinary: ABSENT: dysuria, hematuria Musculoskeletal: ABSENT: joint swelling Integumentary: ABSENT: rash, wounds Neurological: PRESENT: frequent falls Psychiatric: ABSENT: anxiety, depression, homidical ideation, suicidal ideation Endocrine: ABSENT: cold intolerance, heat intolerance, menstrual abnormalities, polydipsia, polyuria Hematologic/Lymphatic: ABSENT: easy bleeding, easy bruising, lymphadenopathy Physical Exam Vital Signs: Temp Pulse Resp BP Pulse Ox 98.2 F 80 16 144/92 H 98 09/02/17 10:29 09/02/17 10:29 09/02/17 10:29 09/02/17 10:29 09/02/17 10:29 Intake & Output 09/01/17 09/02/17 09/03/17 06:59 06:59 06:59 Intake Total 240 Balance 240 Weight 90.9 kg General appearance: PRESENT: no acute distress, well-developed, well-nourished Head exam: PRESENT: atraumatic, normocephalic Eye exam: PRESENT: conjunctiva pink, EOMI, PERRLA Ear exam: PRESENT: normal external ear exam Mouth exam: PRESENT: moist, tongue midline Neck exam: PRESENT: full ROM Respiratory exam: PRESENT: clear to auscultation jimena Cardiovascular exam: PRESENT: RRR, +S1, +S2 Pulses: PRESENT: normal dorsalis pedis pul, +2 pedal pulses bilateral Vascular exam: PRESENT: normal capillary refill GI/Abdominal exam: PRESENT: normal bowel sounds, soft Rectal exam: PRESENT: deferred Neurological exam: PRESENT: alert, awake, oriented to person, oriented to place , oriented to time, oriented to situation, CN II-XII grossly intact Psychiatric exam: PRESENT: appropriate affect, normal mood Skin exam: PRESENT: dry, intact, warm Results Impressions: Cervical Spine CT 09/01/17 21:06 IMPRESSION: CHRONIC DEGENERATIVE CHANGES. NO ACUTE FINDINGS. Head CT 09/01/17 21:06 IMPRESSION: 5 cm area of irregular hypodensity in the right temporal lobe consistent with vasogenic edema resulting in 7 mm of subfalcine midline shift to the patient's left side, chronic appearing. Overall this appearance is concerning for neoplastic process. No hemorrhage. EVIDENCE OF ACUTE STROKE: NO. Facial Bones CT 09/01/17 21:07 IMPRESSION: No fracture. Head MRI 09/02/17 08:47 IMPRESSION: 1. Large right cerebral mass involving the frontal and temporal lobes is confirmed. Consistent with a primary brain lesion. As seen on CT, there is extensive regional edema and right to left shift with mass effect on the right lateral ventricle. EVIDENCE OF ACUTE STROKE: NO. 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 Prophylaxis, called [facility], patient is accepted in transfer to [facility]
[2017-09-02] MEDS ORDERED: (PENDING PHARMACY ID) (Oxycodone Hcl/Acetaminophen [Percocet 10-325 Mg Tablet] 1 TAB) PO PRN (16:32)
[2017-09-02] MEDS ORDERED: OXYCODONE-ACETAMINOPHEN 5-325 MG TABLET PO PRN (16:35)
[2017-09-02] MEDS ORDERED: (PENDING PHARMACY ID) (Lisinopril/Hydrochlorothiazide [Zestoretic 10-12.5 Mg Tablet] 1 TAB PO SCH (16:45)
--- NOTE | 2017-09-02 17:30 | PDOC TRANSFER SUMMARY ---
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 Is this a current diagnosis for this admission?: Yes - Transfer Medications Home Medications: Lisinopril/Hydrochlorothiazide [Zestoretic 10-12.5 mg Tablet] 1 tab PO DAILY Metoprolol Tartrate [Lopressor 100 mg Tablet] 100 mg PO BID 07/15/16 Oxycodone HCl/Acetaminophen [Percocet 10-325 mg Tablet] 1 tab PO Q6HP PRN Simvastatin [Zocor 40 mg Tablet] 40 mg PO QHS 07/15/16 Zolpidem Tartrate [Ambien] 10 mg PO QHS 07/15/16 Ascorbic Acid [Vitamin C 500 mg Tablet] 1,000 mg PO DAILY 09/02/17 Aspirin [Aspirin EC] 81 mg PO DAILY 09/02/17 Cholecalciferol (Vitamin D3) [Vitamin D3 1000 Unit Tablet] 1,000 unit PO DAILY 09/02/17 Transfer Medications: Current Medications Ascorbic Acid (Vitamin C 500 Mg Tablet) 1,000 mg PO DAILY CHRISTIE Stop: 10/03/17 09:59 Ascorbic Acid (Vitamin C 500 Mg Tablet) 1,000 mg PO NOW ONE Stop: 09/02/17 18:01 Cholecalciferol (Vitamin D3 1000 Unit Tablet) 1,000 unit PO DAILY CHRISTIE Stop: 10/03/17 09:59 Cholecalciferol (Vitamin D3 1000 Unit Tablet) 1,000 unit PO NOW ONE Stop: 09/02/17 18:01 Dexamethasone Sodium Phosphate (Decadron Inj 4 Mg/Ml Vial) 4 mg IV Q6 CHRISTIE Stop: 10/02/17 17:59 Hydrochlorothiazide (Hydrodiuril 12.5 Mg Capsule) 12.5 mg PO QPM CHRISTIE Stop: 10/02/17 17:59 Levetiracetam (Keppra 500 Mg Tablet) 500 mg PO Q12A CHRISTIE Stop: 10/02/17 17:59 Lisinopril (Prinivil 10 Mg Tablet) 10 mg PO QPM CHRISTIE Stop: 10/02/17 17:59 Metoprolol Tartrate (Lopressor 100 Mg Tablet) 100 mg PO Q12A CHRISTIE Stop: 10/02/17 17:59 Oxycodone/Acetaminophen (Percocet 5-325 Mg Tablet) 1 tab PO Q6HP PRN PRN Reason: FOR PAIN Stop: 09/09/17 16:34 Simvastatin (Zocor 40 Mg Tablet) 40 mg PO QHS CHRISTIE Stop: 10/02/17 21:59 Zolpidem Tartrate (Ambien 5 Mg Tablet) 10 mg PO QHS CHRISTIE Stop: 09/09/17 21:59 - Allergies Allergies/Adverse Reactions: No Known Allergies Allergy (Verified 10/22/11 04:49) Hospital Course Hospital Course: Patient was admitted for observation because of neoplasm of the right cerebral cortex of unknown behavior, suspect primary brain Neoplasm, there is mass-effect , treated with IV Decadron also started on Keppra for stroke prophylaxis. Patient to be transferred to tertiary care, already accepted in transfer by neurosurgery at [facility] Physical Exam Vital Signs: Temp Pulse Resp BP Pulse Ox 98.2 F 80 16 144/92 H 98 09/02/17 10:29 09/02/17 10:29 09/02/17 10:29 09/02/17 10:29 09/02/17 10:29 Intake & Output 09/01/17 09/02/17 09/03/17 06:59 06:59 06:59 Intake Total 240 Balance 240 Weight 90.9 kg General appearance: PRESENT: no acute distress Eye exam: PRESENT: PERRLA Respiratory exam: PRESENT: clear to auscultation jimena Cardiovascular exam: PRESENT: +S1, +S2 GI/Abdominal exam: PRESENT: soft Neurological exam: PRESENT: alert Results Impressions: Cervical Spine CT 09/01/17 21:06 IMPRESSION: CHRONIC DEGENERATIVE CHANGES. NO ACUTE FINDINGS. Head CT 09/01/17 21:06 IMPRESSION: 5 cm area of irregular hypodensity in the right temporal lobe consistent with vasogenic edema resulting in 7 mm of subfalcine midline shift to the patient's left side, chronic appearing. Overall this appearance is concerning for neoplastic process. No hemorrhage. EVIDENCE OF ACUTE STROKE: NO. Facial Bones CT 09/01/17 21:07 IMPRESSION: No fracture. Head MRI 09/02/17 08:47 IMPRESSION: 1. Large right cerebral mass involving the frontal and temporal lobes is confirmed. Consistent with a primary brain lesion. As seen on CT, there is extensive regional edema and right to left shift with mass effect on the right lateral ventricle. EVIDENCE OF ACUTE STROKE: NO.
[2017-09-02] MEDS ORDERED: CHOLECALCIFEROL (D3) 1,000 UNIT TABLET PO ONE (18:00)
[2017-09-02] MEDS ORDERED: LISINOPRIL 10 MG TABLET PO SCH (18:00)
[2017-09-02] MEDS ORDERED: LEVETIRACETAM 500 MG TABLET PO SCH (18:00)
[2017-09-02] MEDS ORDERED: HYDROCHLOROTHIAZIDE 12.5 MG CAPSULE PO SCH (18:00)
[2017-09-02] MEDS ORDERED: ASCORBIC ACID 500 MG TABLET PO ONE (18:00)
[2017-09-02] MEDS ORDERED: METOPROLOL TARTRATE 100 MG TABLET PO SCH (18:00)
[2017-09-02 21:00] VITALS: BP 155/94
[2017-09-02] MEDS ORDERED: (PENDING PHARMACY ID) (Zolpidem Tartrate [Ambien] 10 MG) PO SCH (22:00)
[2017-09-02] MEDS ORDERED: SIMVASTATIN 40 MG TABLET PO SCH (22:00)
[2017-09-02] MEDS ORDERED: ZOLPIDEM TARTRATE 5 MG TABLET PO SCH (22:00)
[2017-09-03] MEDS ORDERED: CHOLECALCIFEROL (D3) 1,000 UNIT TABLET PO SCH (10:00)
[2017-09-03] MEDS ORDERED: ASCORBIC ACID 500 MG TABLET PO SCH (10:00)
== END 2017-09-02 19:53 | disposition short-term general hospital (02) ==
LOC: ER 21:05 → EH 09-02 09:00 → 5 09-02 10:23
PROVIDERS: ADMIT Internal Medicine; ATTEND Internal Medicine
DX: D43.0 Neoplasm of uncertain behavior of brain, supratentorial (principal); S00.81XA Abrasion of other part of head, initial encounter; W19.XXXA Unspecified fall, initial encounter; F10.10 Alcohol abuse, uncomplicated; F17.210 Nicotine dependence, cigarettes, uncomplicated; R29.6 Repeated falls; I25.2 Old myocardial infarction; Z79.899 Other long term (current) drug therapy; Z79.82 Long term (current) use of aspirin
CPT/HCPCS: 99285; 96365; 36415; 82962; 80307; 85025; 80053; 70553; 70450; 70486; 72125; A9577; A9270 ×7; J1100 ×2

== ENCOUNTER → 2017-09-17 | Outpatient (CLI) | payer MEDICARE, OTHER ==
--- NOTE | 2017-09-17 11:11 | RADIOLOGY REPORT (SQ) ---
EXAM DESCRIPTION: CT HEAD WITHOUT COMPLETED DATE/TIME: 09/17/2017 10:57 am REASON FOR STUDY: OTHER SPECIFIED INJURIES OF HEAD, INITIAL ENCOUNTER S09.8XXA OTHER SPECIFIED INJU NAVJOT OF HEAD, INITIAL ENCOUNTER COMPARISON: MRI brain 09/02/2017 CT brain 09/01/2017 TECHNIQUE: Axial images acquired through the brain without intravenous contrast. Images reviewed wi th bone, brain and subdural windows. Additional sagittal and coronal reconstructions were generated. Images stored on PACS. All CT scanners at this facility use dose modulation, iterative reconstruction, and/or weight based d osing when appropriate to reduce radiation dose to as low as reasonably achievable (ALARA). [facility]: Dose Right [facility]: CareDose [facility]: Dose Right [facility]: Teradose 4D [facility]: [employer] Technologies RADIATION DOSE: CT Rad equipment meets quality standard of care and radiation dose reduction techniq ues were employed. CTDIvol: 48.6 mGy. DLP: 953 mGy-cm. mGy. LIMITATIONS: None. FINDINGS: VENTRICLES: Normal size and contour. CEREBRUM: Patient is post right temporal craniotomy for resection of the tumor along the middle crani al fossa/greater wing sphenoid region. Deep to the craniotomy flap there is a small extra-axial thin rim of fluid 5 mm in thickness. In the anterior right temporal lobe there low-attenuation from ence phalomalacia. Today's study demonstrates less than 5 mm of right to left subfalcine shift which represents an impro vement compared to the preoperative scanning. There is no CT evidence of acute large territory ischemic change. No acute intracranial hemorrhage. On axial image 19, a 4 mm hyperdensity is present at the foramen of Monro, likely a benign incidental colloid cyst. CEREBELLUM: No masses. No hemorrhage. No alteration of density. No evidence for acute infarction. EXTRAAXIAL SPACES: Deep to the craniotomy flap there is a 5 mm rim of near CSF density fluid of doubt ful clinical significance. ORBITS AND GLOBE: No intra- or extraconal masses. Normal contour of globe without masses. CALVARIUM: Right temporal craniotomy. In the overlying scalp soft tissues there is a fluid collectio n likely subgaleal, 9 cm AP x 1.5 cm transverse. PARANASAL SINUSES: Minimal fluid left sphenoid sinus SOFT TISSUES: As above OTHER: Findings discussed with Dr. 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 Significant i mprovement in right to left subfalcine shift. No acute hemorrhage or acute ischemic change identifie d. EVIDENCE OF ACUTE STROKE: NO. COMMENT: Quality ID # [id number]: Final reports with documentation of one or more dose reduction techniques (e.g., Automated exposure control, adjustment of the mA and/or kV according to patient size, use of iterative reconstruction technique) TECHNICAL DOCUMENTATION: JOB ID: [id number] [employer]- All Rights Reserved Reading location - IP/workstation name: [email or web address] [id number]
== END ==
LOC: RAD 10:25
PROVIDERS: ATTEND Internal Medicine
DX: S09.8XXA Other specified injuries of head, initial encounter (principal); X58.XXXA Exposure to other specified factors, initial encounter; Y93.9 Activity, unspecified; Y92.9 Unspecified place or not applicable
CPT/HCPCS: 70450

== ENCOUNTER 2018-02-20 09:55 | Emergency (ER) | payer MEDICARE, OTHER ==
--- NOTE | 2018-02-20 10:23 | ER Document Report ---
ED Medical Screen (RME) - General Chief Complaint: Other Stated Complaint: HEAD SWOLLEN Time Seen by Provider: 02/20/18 10:21 Mode of Arrival: Ambulatory Information source: Patient TRAVEL OUTSIDE OF THE [place] IN LAST 30 DAYS: No - HPI Patient complains to provider of: head swelling Onset: This morning - pt with brain tumor removed at [facility] -- feels head is swollen on opposite side of tumor - Related Data Allergies/Adverse Reactions: No Known Allergies Allergy (Verified 10/22/11 04:49) Past Medical History - Past Medical History Cardiac Medical History: Reports: Hx Heart Attack, Hx Hypertension Denies: Hx Coronary Artery Disease Pulmonary Medical History: Denies: Hx Asthma, Hx Bronchitis, Hx COPD, Hx Pneumonia Neurological Medical History: Denies: Hx Cerebrovascular Accident, Hx Seizures Renal/ Medical History: Denies: Hx Peritoneal Dialysis Musculoskeltal Medical History: Reports Hx Arthritis Psychiatric Medical History: Denies: Hx Depression - Immunizations Hx Diphtheria, Pertussis, Tetanus Vaccination: Yes Physical Exam - Vital signs Vitals: Temp Pulse Resp BP Pulse Ox 97.6 F 67 16 132/71 H 98 02/20/18 10:16 02/20/18 10:16 02/20/18 10:16 02/20/18 10:16 02/20/18 10:16 Course - Vital Signs Vital signs: Temp Pulse Resp BP Pulse Ox 97.6 F 67 16 132/71 H 98 02/20/18 10:16 02/20/18 10:16 02/20/18 10:16 02/20/18 10:16 02/20/18 10:16 Doctor's Discharge - Discharge Referrals: BRAEDEN HEATH MD [Primary Care Provider] - Follow up as needed
--- NOTE | 2018-02-20 10:54 | RADIOLOGY REPORT (SQ) ---
EXAM DESCRIPTION: CT HEAD WITHOUT COMPLETED DATE/TIME: 02/20/2018 10:39 am REASON FOR STUDY: ZAPIEN COMPARISON: 09/17/2017. TECHNIQUE: Axial images acquired through the brain without intravenous contrast. Images reviewed wi th bone, brain and subdural windows. Additional sagittal and coronal reconstructions were generated. Images stored on PACS. All CT scanners at this facility use dose modulation, iterative reconstruction, and/or weight based d osing when appropriate to reduce radiation dose to as low as reasonably achievable (ALARA). [facility]: Dose Right [facility]: CareDose [facility]: Dose Right [facility]: Teradose 4D [facility]: [employer] RADIATION DOSE: CT Rad equipment meets quality standard of care and radiation dose reduction techniq ues were employed. CTDIvol: 53.2 mGy. DLP: 1044 mGy-cm. mGy. LIMITATIONS: None. FINDINGS: VENTRICLES: Normal size and contour. CEREBRUM: No masses. No hemorrhage. No midline shift. Surgical changes in the right temporal lobe with encephalomalacia. No evidence for acute infarction. Normal smith/white matter differentiation. N o areas of low density in the white matter. CEREBELLUM: No masses. No hemorrhage. No alteration of density. No evidence for acute infarction. EXTRAAXIAL SPACES: No fluid collections. No masses. ORBITS AND GLOBE: No intra- or extraconal masses. Normal contour of globe without masses. CALVARIUM: No fracture. Right craniotomy. PARANASAL SINUSES: No fluid or mucosal thickening. SOFT TISSUES: No mass or hematoma. OTHER: No other significant finding. IMPRESSION: SURGICAL CHANGES IN THE RIGHT TEMPORAL LOBE. NO ACUTE FINDINGS. EVIDENCE OF ACUTE STROKE: NO. COMMENT: Quality ID # [id number]: Final reports with documentation of one or more dose reduction techniques (e.g., Automated exposure control, adjustment of the mA and/or kV according to patient size, use of iterative reconstruction technique) TECHNICAL DOCUMENTATION: JOB ID: [id number] [employer]- All Rights Reserved Reading location - IP/workstation name: [email or web address]
[2018-02-20 12:04] VITALS: BP 123/58
== END 2018-02-20 12:03 | disposition home or self-care (01) ==
LOC: ER 09:55
DX: R22.0 Localized swelling, mass and lump, head (principal); Z98.890 Other specified postprocedural states; I10 Essential (primary) hypertension
CPT/HCPCS: 70450; 99284

== ENCOUNTER → 2018-06-07 | Outpatient (CLI) | payer MEDICARE, OTHER ==
--- NOTE | 2018-06-07 12:31 | RADIOLOGY REPORT (SQ) ---
EXAM DESCRIPTION: FOOT RIGHT COMPLETE COMPLETED DATE/TIME: 06/07/2018 10:39 am REASON FOR STUDY: PAIN IN RIGHT FOOT (M79.671) M79.671 PAIN IN RIGHT FOOT COMPARISON: None. NUMBER OF VIEWS: Three views. TECHNIQUE: AP, lateral and oblique radiographic images acquired of the right foot. LIMITATIONS: None. FINDINGS: MINERALIZATION: Normal. BONES: No acute fracture or dislocation. Retrocalcaneal spur. No worrisome bone lesions. JOINTS: Mild degenerative changes at the first metatarsophalangeal joint and hallux valgus deformity . SOFT TISSUES: No soft tissue swelling. No foreign body. OTHER: No other significant finding. IMPRESSION: 1. No acute osseous findings. 2. Mild degenerative changes and hallux valgus deformity first metatarsophalangeal joint. TECHNICAL DOCUMENTATION: JOB ID: [id number] [employer]- All Rights Reserved Reading location - IP/workstation name: [email or web address]
== END ==
LOC: RAD 10:22
PROVIDERS: ATTEND Internal Medicine
DX: M79.671 Pain in right foot (principal); M20.11 Hallux valgus (acquired), right foot